=== PATIENT | female | born 1960 | race Caucasian/White ===

== ENCOUNTER 2017-02-17 16:00 | Inpatient (IN) | payer BC ==
[2017-02-25] MEDS ORDERED: VANCOMYCIN HCL 1,000 MG in 0.9 % SODIUM CHLORIDE 250ML 250 ML IVPB ONE (06:00)
[2017-02-25] MEDS ORDERED: METOCLOPRAMIDE 10 MG TABLET PO ONE (06:00)
[2017-02-25] MEDS ORDERED: MECLIZINE 25 MG TABLET PO ONE (06:00)
[2017-02-25] MEDS ORDERED: CELECOXIB 100 MG CAPSULE PO ONE (06:00)
[2017-02-25] MEDS ORDERED: CEFAZOLIN 2 Gram 2 GM/50 ML BAG IVPB ONE (06:00)
[2017-02-25] MEDS ORDERED: FAMOTIDINE 20MG TABLET PO ONE (06:00)
[2017-02-25 09:41] LABS: ABO GROUP A; ANTIBODY SCREEN NEGATIVE (NEGATIVE); RH TYPE POSITIVE
[2017-02-25] MEDS ORDERED: TRANEXAMIC ACID 1,000 MG/10 ML ML IV ONE (09:44)
[2017-02-25] MEDS ORDERED: 0.9 % SODIUM CHLORIDE 10 ML VIAL IVP ONE (09:44)
[2017-02-25] MEDS ORDERED: HYDROMORPHONE HCL 1MG/ML **SYRINGE IM PRN (12:59)
[2017-02-25] MEDS ORDERED: ACETAMINOPHEN 325 MG TAB PO PRN (12:59)
[2017-02-25] MEDS ORDERED: ACETAMINOPHEN W/ CODEINE 300MG/60MG TABLET PO PRN ×2 (12:59)
[2017-02-25] MEDS ORDERED: HYDROMORPHONE HCL 2 MG/ML VIAL IM PRN (12:59)
[2017-02-25] MEDS ORDERED: KETOROLAC 30 MG/ML VIAL IVP PRN ×2 (12:59)
[2017-02-25] MEDS ORDERED: ONDANSETRON HCL IV 4 MG/2 ML VIAL IVP PRN (12:59)
[2017-02-25] MEDS ORDERED: MAGNESIUM HYDROXIDE 30 ML UDC PO PRN (12:59)
[2017-02-25] MEDS ORDERED: ZOLPIDEM TARTRATE 5 MG TABLET PO PRN (12:59)
[2017-02-25] MEDS ORDERED: HYDROCODONE/APAP 10/325 TABLET PO PRN (12:59)
[2017-02-25] MEDS ORDERED: BISACODYL 10 MG SUPP RC PRN (12:59)
[2017-02-25] MEDS ORDERED: DIPHENHYDRAMINE HCL 25 MG CAPSULE PO PRN (12:59)
[2017-02-25] MEDS ORDERED: NALOXONE 0.4 MG/1 ML VIAL IVP PRN (12:59)
[2017-02-25] MEDS ORDERED: BUPIVACAINE 0.75% W/EPI MPF 30ML VIAL IVP ONE (14:00)
[2017-02-25] MEDS ORDERED: FENTANYL PF 100MCG/2ML VIAL IV ONE (14:00)
[2017-02-25] MEDS ORDERED: *PACU ONLY* KETAMINE HCL 10 MG/ML (20ML) VIAL IV ONE (14:00)
[2017-02-25] MEDS ORDERED: EPHEDRINE SULFATE 50 MG/ML ML IV ONE (14:00)
[2017-02-25] MEDS ORDERED: HYDROMORPHONE HCL 2 MG/ML VIAL IV ONE (14:00)
[2017-02-25] MEDS ORDERED: MIDAZOLAM HCL 2MG/2ML VIAL IV ONE (14:00)
[2017-02-25] MEDS ORDERED: PROPOFOL 10 MG/ML VIAL IV ONE (14:00)
[2017-02-25] MEDS: POTASSIUM CHLORIDE/D5-0.9%NACL 20 MEQ/1,000 ML BAG IV SCH ×3 (15:31→21:49)
[2017-02-25] MEDS: HYDROCODONE/APAP 10/325 TABLET PO PRN (16:48)
--- NOTE | 2017-02-25 17:09 | Rehab Evaluation ---
Patient Information - Patient Information Diagnosis: DJD R hip Ordered Treatment: PT Evaluate and Treat Status: Initial Evaluation Surgery: Yes Date of Surgery: 02/25/17 Past Medical/Surgical Hx: PAST MEDICAL/SURGICAL HISTORY Past Surgical History c sections x's 2 tonsils c scope PMH - Respiratory Hx Respiratory Disorders Yes Hx Asthma No Hx Bronchitis Yes Hx Chronic Obstructive No Pulmonary Disease (COPD) Hx Dyspnea No Hx Pneumonia No Hx Pulmonary Embolism No Hx Sleep Apnea No Hx Tuberculosis No Hx of CPAP No PMH - Cardiovascular Hx Cardiovascular Disorders No Exercise Tolerance Fair Hx Transient Ischemic Attacks No (TIA) Comment: due to hip PMH - Neuro Hx Neurological Disorders Yes Hx Brain Tumor No Hx Cerebrovascular Accident No Hx Dementia No Hx Dizziness Yes: when she gets up too fast occassionally Hx Headaches No Hx Neuropathy No Hx Parkinson's Disease No Hx Seizures No Hx Speech Problem No Hx Syncope No Hx Transient Ischemic Attacks No (TIA) PMH - GI Hx Gastrointestinal Disorders Yes Hx Abdominal Pain No Hx Celiac Disease No Hx Crohn's Disease No Hx Diverticulitis No Hx Gastrointestinal Bleed No Hx Gastroesophageal Reflux Yes Hx Hepatitis/Jaundice No Hx Hiatal Hernia No Hx Irritable Bowel No Hx Liver Disease No Hx Nausea/Vomiting No Hx Obstructive Bowel No Hx Pancreatitis No Hx Rectal Bleeding No Hx Ulcer No Hx Weight Loss/Weight Gain No PMH - Hx Genitourinary Disorders No Hx Age of Menopause 49 PMH - Endocrine Hx Endocrine Disorders No Hx Diabetes No Hx Thyroid Disease No PMH - Musculoskeletal Hx Musculoskeletal Disorders Yes Hx Arthritis Yes Hx Back Injury No Hx Fibromyalgia No Hx Gout Yes: controlled on meds Hx Musculoskeletal Disease No Hx Osteoporosis No PMH - Psych Hx Psychiatric Problems No PMH - Hematology/Oncology Hx Hematology/Oncology No Disorders Premorbid Status: Detail (The patient was independent with all mobility and ADL' s prior to surgery.) Social History: Detail (The patient is living with significant other post surgery due to flight of stairs in her own home. The significant other's home is one story with 3 steps at the enterance with 2 railings. The house is equipped with a tub/shower combination with a tub seat and grab bars and an elevated toilet seat. The patient has a 2 wheeled walker and a standard cane.) Precautions: [place], Other (Total hip precautions) - Time With Patient Total Time Spent With Patient (Min): 30 Treatment Procedures: Detail (Initial evaluation, Total hip precautions were reviewed. The patient's HEP was reviewed and completed including gluteal sets, ankle pumps, hip abduction, quad sets , hamstring sets and heel slides within KARUNA precautions.) Subjective Information - Subjective Information Per Patient (The patient denies pain but did have some complaints of lightheadness.) Objective Data - Mental Status Patient Orientation: Oriented x3 - Visual Perception Appears within normal limits for therapeutic activities - ROM Within normal limits (The patient's L LE AROM is WNL, R LE is within total hip precautions.) - Strength/Tone Within normal limits (The patient's LE strength was not formally tested status post surgery but was within functional limits. The patient was able to lift R LE in and out of bed.) - Bed Mobility Independent (The patient was independent with supine to and from sit transfer.) - Transfers Independent (The patient was independent with sit to and from stand transfer and with toilet transfer from an elevated seat. The patient required occasional cues to bring the walker with her when turning to sit.) - Balance Balance Sitting: Good Balance Standing: Good (The patient was able to stand without support and pull pants up and down.) - Gait Detail (The patient ambulated with wheeled walker to bathroom WBAT on the R LE with assist with equipment only 13 feet x 1. The patient also ambulated in hallway 50 feet x 1 with wheeled walker and WBAT on the R LE.) Therapy Assessment - Therapy Assessment Detail (The patient was independent with bed mobility and ambulation on levels and required verbal cues for transfers. The patient was independent with HEP and hip precautions. Feel the patient will progress well with mobility.) Problem List - Problem List Physical Therapy Problem List: Detail (1) Decreased R hip strength as to be expected following surgery 2) Nonambulatory on stairs 3) occasional verbal cues for proper transfer techniques) Goals - Goals Physical Therapy Goals: 1) The patient will be independent with all transfers. 2) The patient will be independent with ambulation with asssistive device on levels and stairs WBAT on the R LE. Prognosis - Prognosis Good Plan - Plan Physical Therapy Plan: PT 1-2 times a day for gait training and transfer training until completion of PT inpatient goals.
[2017-02-25] MEDS: CEFAZOLIN 2 Gram 2 GM/50 ML BAG IVPB SCH (18:32)
[2017-02-25] MEDS: AL HYDROX/MAG HYDROX 30ML UD PO PRN (23:04)
[2017-02-25] MEDS: DOCUSATE SODIUM 100 MG CAPSULE PO SCH (23:05)
[2017-02-26] MEDS: CEFAZOLIN 2 Gram 2 GM/50 ML BAG IVPB SCH ×2 (02:40→11:28)
[2017-02-26] MEDS: HYDROCODONE/APAP 10/325 TABLET PO PRN (04:55)
[2017-02-26] MEDS: POTASSIUM CHLORIDE/D5-0.9%NACL 20 MEQ/1,000 ML BAG IV SCH (05:45)
[2017-02-26 06:56] LABS: HEMATOCRIT 30.6 % (35.0-47.0); HEMOGLOBIN 9.3 gm/dl (11.6-16.0)
[2017-02-26 07:02] LABS: BLOOD UREA NITROGEN 10 mg/dL (6-20); CREATININE 0.6 mg/dL (0.5-0.9); EST GLOMERULAR FILTRATION RATE > 60 mL/min; GLUCOSE,RANDOM 112 mg/dL (74-109)
[2017-02-26] MEDS: DOCUSATE SODIUM 100 MG CAPSULE PO SCH (09:53)
[2017-02-26] MEDS ORDERED: FERROUS SULFATE 325 MG TAB PO SCH (10:00)
[2017-02-26] MEDS ORDERED: ALLOPURINOL 100 MG TAB PO SCH (10:00)
[2017-02-26] MEDS ORDERED: RANITIDINE HCL 150 MG TABLET PO SCH (10:00)
[2017-02-26] MEDS ORDERED: RIVAROXABAN 10 MG TABLET PO SCH (10:00)
--- NOTE | 2017-02-26 11:23 | Physical Therapy Tx Note ---
Physical Therapy Tx Note - Treatment Note Tolerated: Good (Patient doing great today but still in bed this am and sleepy. Willing to get up and exercise and walk secondary to wants to go home. Able to ambulate in bowens and do stairs. Comfortable with exercises.) Total Time Spent With Patient: 30 Physical Therapy Tx Note: Detail (Patient seen bedside and still in bed, supine to sit with slight assist to pull up to sitting, sit to stand independently with FWW, ambulated to bathroom with CGA and FWW, WBAT right, able to use commode independently then washed hands independently also. Placed gown on patient as robe and ambulated in bowens about 50 feet to stairs. Sat in wheelchair for a couple of minutes to rest then ambulated with FWW to edge of steps, ambulated down three steps with folded walker and rail for support, used walker to pivot around then ambulated back up three steps with walker and rail, CGA and WBAT right. Ambulated back to room and sat up in chair with LES supported on tray table base, performed exercises for right LE seated: june with emphasis on hip precautions, knee flexion/extension, ankle pumps and isometrics. Reviewed hip precautions with good recall. Replaced hip cold pack, feet on tray table base for support and call light, tray table close.) Physical Therapy Problem List: Detail (1) Decreased R hip strength as to be expected following surgery 2) Nonambulatory on stairs 3) occasional verbal cues for proper transfer techniques) Physical Therapy Goals: 1) The patient will be independent with all transfers. 2) The patient will be independent with ambulation with asssistive device on levels and stairs WBAT on the R LE. Prognosis: Good (Patient doing very well and has passed skills to be discharged home. Have patient scheduled this afternoon to work on endurance gait if still here in hospital.) Physical Therapy Plan: PT 1-2 times a day for gait training and transfer training until completion of PT inpatient goals.
--- NOTE | 2017-02-26 12:03 | Rehab Evaluation ---
Patient Information - Patient Information Diagnosis: DJD R hip Ordered Treatment: OT Evaluate and Treat Status: Initial Evaluation Surgery: Yes (right KARUNA) Date of Surgery: 02/25/17 Past Medical/Surgical Hx: PAST MEDICAL/SURGICAL HISTORY Past Surgical History c sections x's 2 tonsils c scope PMH - Respiratory Hx Respiratory Disorders Yes Hx Asthma No Hx Bronchitis Yes Hx Chronic Obstructive No Pulmonary Disease (COPD) Hx Dyspnea No Hx Pneumonia No Hx Pulmonary Embolism No Hx Sleep Apnea No Hx Tuberculosis No Hx of CPAP No PMH - Cardiovascular Hx Cardiovascular Disorders No Exercise Tolerance Fair Hx Transient Ischemic Attacks No (TIA) Comment: due to hip PMH - Neuro Hx Neurological Disorders Yes Hx Brain Tumor No Hx Cerebrovascular Accident No Hx Dementia No Hx Dizziness Yes: when she gets up too fast occassionally Hx Headaches No Hx Neuropathy No Hx Parkinson's Disease No Hx Seizures No Hx Speech Problem No Hx Syncope No Hx Transient Ischemic Attacks No (TIA) PMH - GI Hx Gastrointestinal Disorders Yes Hx Abdominal Pain No Hx Celiac Disease No Hx Crohn's Disease No Hx Diverticulitis No Hx Gastrointestinal Bleed No Hx Gastroesophageal Reflux Yes Hx Hepatitis/Jaundice No Hx Hiatal Hernia No Hx Irritable Bowel No Hx Liver Disease No Hx Nausea/Vomiting No Hx Obstructive Bowel No Hx Pancreatitis No Hx Rectal Bleeding No Hx Ulcer No Hx Weight Loss/Weight Gain No PMH - Hx Genitourinary Disorders No Hx Age of Menopause 49 PMH - Endocrine Hx Endocrine Disorders No Hx Diabetes No Hx Thyroid Disease No PMH - Musculoskeletal Hx Musculoskeletal Disorders Yes Hx Arthritis Yes Hx Back Injury No Hx Fibromyalgia No Hx Gout Yes: controlled on meds Hx Musculoskeletal Disease No Hx Osteoporosis No PMH - Psych Hx Psychiatric Problems No PMH - Hematology/Oncology Hx Hematology/Oncology No Disorders Premorbid Status: Detail (The patient lives alone but she will be staying with her significant other temporarily due to having 16 steps to enter her home. Her S.O. lives in a 1 story house with 3 steps and sergio handrailings at the entrance. S.O. has a tub/shower combination with extended tub bench and 1 grab bar and an elevated toilet with grab bars and he also has a toilet riser if needed. She has a 2 wheeled walker, 3 canes, crutches, a wheelchair, lawn care worker and long shoe horn. S.O. will be completing home mgmt, meal prep and laundry. The patient was independent with all mobility and ADL's prior to surgery.) Social History: Detail (Very supportive significant other.) Precautions: [place], [place], Other (Total hip precautions) - Time With Patient Total Time Spent With Patient (Min): 45 Treatment Procedures: Detail (OT eval low complexity) Subjective Information - Subjective Information Per Patient, Other (per significant other) Objective Data - Pain Pain Present: Yes (09/28) - Mental Status Patient Orientation: Oriented x3 - Visual Perception Appears within normal limits for therapeutic activities - ROM Within normal limits (Sergio UE AROM WNL) - Strength/Tone Within normal limits (Sergio UE strength WNL) - Coordination Appears within normal limits for therapeutic activities - Bed Mobility Independent (Ind with supine to sit at EOB) - Transfers Independent (Ind with sit to stand transfers from EOB and chair) - Balance Balance Sitting: Good Balance Standing: Good - Sensation Intact - Gait Detail (Pt ambulating in room with 2 wheeled walker Indly.) - ADL's/IADL's Detail (Reviewed total hip precautions and adaptive equipment use for LE dressing. Pt able to demonstrate doffing of sock type slippers, donning of underpants, sweatpants and sock type slippers with use of lawn care worker and sock aid while maintaining total hip precautions. Reviewed shower safety, pt and S.O. verbalize understanding.) Therapy Assessment - Therapy Assessment Detail (Pt is safe and Ind with self cares using adaptive equipment while maintaining total hip precautions. She purchased a sock aid.) Problem List - Problem List Physical Therapy Problem List: Detail (1) Decreased R hip strength as to be expected following surgery 2) Nonambulatory on stairs 3) occasional verbal cues for proper transfer techniques) Occupational Therapy Problem List: Detail (No OT problems identified.) Goals - Goals Physical Therapy Goals: 1) The patient will be independent with all transfers. 2) The patient will be independent with ambulation with asssistive device on levels and stairs WBAT on the R LE. Occupational Therapy Goals: No current OT goals identified. Prognosis - Prognosis Good Plan - Plan Physical Therapy Plan: PT 1-2 times a day for gait training and transfer training until completion of PT inpatient goals. Occupational Therapy Plan: No further IP OT recommended at this time. Thank you for this referral.
[2017-02-26] MEDS: AL HYDROX/MAG HYDROX 30ML UD PO PRN (12:42)
--- NOTE | 2017-02-26 14:44 | Physical Therapy Tx Note ---
Physical Therapy Tx Note - Treatment Note Tolerated: Good (Patient doing better but pain still an issue and still nauseated a little. Willing to get up and walk; able to ambulate with FWW with CGA and WBAT about 100 feet in bowens then back to bathroom.) Physical Therapy Tx Note: Detail (Patient seen bedside and resting in bed but ready to go as soon as PT finished. Supine to sit edge of bed with assist to go out left side of bed with right LE. Sit to stand independently with cues, FWW, ambulated into bowens and down bowens about 100+ feet with FWW, WBAT. Ambulated back to room then into bathroom, able to use high-set commode OK but needed to change pants so did exercises standing and changed britches, patient back to bed and into bed from right side with less issue and very little assist with right LE. Reviewed hip precautions.) Physical Therapy Problem List: Detail (1) Decreased R hip strength as to be expected following surgery 2) Nonambulatory on stairs 3) occasional verbal cues for proper transfer techniques) Physical Therapy Goals: 1) The patient will be independent with all transfers. 2) The patient will be independent with ambulation with asssistive device on levels and stairs WBAT on the R LE. Prognosis: Good (Patient doing very well but still a little issue with pain control and nausea. Should do better once gets to own environment. Goals all met and patient ready for discharge home.) Physical Therapy Plan: PT 1-2 times a day for gait training and transfer training until completion of PT inpatient goals.
--- NOTE | 2017-02-26 15:31 | Operative Note ---
DATE OF SURGERY: 02/25/17 PREOPERATIVE DIAGNOSIS: END-STAGE ARTHROSIS OF THE RIGHT HIP. POSTOPERATIVE DIAGNOSIS: END-STAGE ARTHROSIS OF THE RIGHT HIP. OPERATION: CEMENTLESS RIGHT TOTAL HIP ARTHROPLASTY USING WHITTAKER AND NEPHEW COMPONENTS, A SIZE 52 NO-HOLE REFLECTION CUP, A SIZE 32 MM DIAMETER 35-DEGREE OFFSET HIGH CROSSLINKED LINER, A SIZE 12 STANDARD ECHELON STEM WITH A -32 MM DIAMETER OXINIUM HEAD. SURGEON: DR. PITTS ANESTHESIA: SPINAL. PREPARATION: CHLORAPREP. INDIVIDUAL CONSIDERATIONS: This lady was morbidly obese and because of this, she had an adipose layer that was almost 3.5 inches. This required more extensive dissection and more difficult exposure and longer surgical time. PROCEDURE: The patient was taken to the Operating Room and placed supine on the operating room table. She had a successful induction of a spinal anesthetic. She was placed on her side, right side up, and her right leg and hip were prepped and draped in the usual fashion. The patient had direct posterior approach to the hip. Sharp dissection carried down through the skin and subcutaneous tissue, which was abundant, almost 3.5. inches. Small veins were coagulated with a Bovie. The tensor gluteal fascia was opened along the entire length of the incision and deep retractors were placed. Short external rotators were identified piriformis fossa and removed. This exposed the posterior capsule. Posterior capsulectomy was performed and the hip was dislocated posteriorly. The patient had exposed bone throughout with bone loss on the head. A femoral neck cut was then made freehand using an oscillating saw just above the lesser trochanter about a thumbbreadth. A rim capsulectomy was performed. Starting with a 45 mm reamer to ream to the medial wall, I reamed the introitus, which was a size 51 for a 52 cup. I slightly centrally reamed to a 50. I then, after irrigation, impacted a size 52 no-hole Reflection cup in 20 degrees of forward flexion and 40 degrees of abduction using the extra-articular alignment guide and bony landmarks. There was solid cementless fixation. After irrigation, the proximal femur was delivered into the wound. Box cutting osteotome was used to remove the proximal metaphyseal bone. Midstem reaming was done to a size trial. I started feeling cortex between 10 and 11. I broached to 12. The anteversion was dialed into about 25 degrees, which is just beyond the natural angle. Calcar reaming with a -3 standard head, there was excellent stability. A high offset would have made it too tight. The length seemed appropriate. Shuck was normal. The broach was removed and again after irrigation, a size 12 standard [place] stent was impacted and then placed with solid calcar contact and solid cementless fixation. After irrigation and drying the Frederick taper, a -3 Oxinium head was impacted, the hip was reduced, and I had solid stability. When I flexed the hip up to the pedunculus and internally rotated max, I still had stability. Absolute maximum stability with the maximum external rotation and extension anteriorly. Sciatic nerve was inspected and found to be completely intact. Hemostasis was obtained with a Bovie. The tensor gluteal fascia was then closed with a running #2 quill. The patient did receive 1 gram of Tranexamic Acid. We mixed 1 gram of Tranexamic Acid with 40 mL of saline and placed most of this deep to the fascia, the remainder I sprinkled on the subcutaneous. The fascia was closed with a running #2 quill. The subcutaneous, which was abundant, was closed with multiple layers of 0 quill. The skin was closed with colleen. The skin was infiltrated and the subcutaneous was infiltrated with 30 mL of 0.5% Marcaine with Epinephrine and a sterile Bulkee compressive Aquacel-type dressing was applied. The patient tolerated the procedures well. Needle and sponge counts were correct. Estimated blood loss was 250 mL. She did not require transfusion. She was taken back to Recovery in good condition. There were no complications. CC: Dr. Mouna Solitario JOB NUMBER: [id number] MTDD
--- NOTE | 2017-02-27 15:53 | Discharge Summary ---
DATE OF ADMISSION: 02/25/17 DATE OF DISCHARGE: 02/26/17 DATE OF SURGERY: 02/25/17 HISTORY: Ms. Dunham is a delightful 57-year-old female who presents with profound end-stage arthrosis of her right hip. She was admitted for right total hip arthroplasty. Postoperatively, she did extremely well. Her hospital course was unremarkable. Her hemoglobin was 9.3 and she did not require transfusion. DISCHARGE INSTRUCTIONS: The plan is to discharge her home to the care of her family. Home PT and Visiting Nurse have been arranged. Sutures will be removed by the Visiting Nurse in two weeks. She will follow-up in my office in four weeks. She will be given 30 days of Xarelto for DVT prophylaxis and she will be given Tylenol #4 for pain. FINAL DIAGNOSIS/PRIMARY DIAGNOSIS: END-STAGE ARTHROSIS OF THE RIGHT HIP. OPERATIONS AND PROCEDURES: CEMENTLESS RIGHT TOTAL HIP ARTHROPLASTY. DISCHARGE CONDITION: GOOD. cc: Dr. Mouna Solitario JOB NUMBER: [id number] MTDD
== END 2017-02-26 15:25 | disposition home health service (06) | DRG 470 ==
LOC: UNDOADMIN 02-25 08:46 → MEDSURG 02-25 08:46
PROVIDERS: ADMIT Orthopaedic Surgery; ATTEND Orthopaedic Surgery
PROC: 0SR906Z Replacement of Right Hip Joint with Oxidized Zirconium on Polyethylene Synthetic Substitute, Open Approach (ICD-10-PCS; principal; 2017-02-25 11:00)
DX: M16.11 Unilateral primary osteoarthritis, right hip (principal); E66.9 Obesity, unspecified; M10.9 Gout, unspecified
CPT/HCPCS: 80048; 85014; 85018; 86850; 86900; 86901; 97110; 97116; 97165; 97530; J2405; J3480; J3490; J7050